=== PATIENT | female | born 1955 | race Caucasian/White ===

== ENCOUNTER → 2024-02-05 12:36 | Outpatient (REF) | payer MEDICARE, OTHER, SELFPAY | LOC: HWWDC 12:36 | PROVIDERS: ATTENDING PHYSICIAN Physician Assistant Medical | DX: Z12.31 Encounter for screening mammogram for malignant neoplasm of breast (principal) | CPT/HCPCS: 77063; 77067 ==

== ENCOUNTER 2024-05-28 04:47 | Emergency (ER) | payer MEDICARE, OTHER, SELFPAY ==
[2024-05-28 04:50] VITALS: BP 148/72
[2024-05-28 05:06] VITALS: BMI 25.3
[2024-05-28] MEDS: ZOFRAN 4 MG IV (05:29)
[2024-05-28] MEDS: TORADOL 15 MG IV (05:30)
[2024-05-28 05:34] LABS: Hemoglobin 13.5 g/dL (12.0-16.0); Mean Corp Hgb Conc. 32.9 g/dL (33.0-37.0); Mean Corpuscular Hgb 30.3 pg (27.0-31.0); Mean Corpuscular Volume 91.9 fL (81.0-99.0); Platelet Count 444 10^3/uL (130-400); Red Blood Cell Count 4.46 10^6/uL (4.20-5.40); Red Cell Dist. Width 12.1 % (11.5-14.5)
[2024-05-28 05:37] LABS: Urine Albumin Trace (Neg - Trace); Urine Bilirubin Negative (Negative); Urine Character Clear (Clear); Urine Color Yellow; Urine Glucose Negative (Negative); Urine Ketone Negative (Negative); Urine Leukocyte Trace (Negative); Urine Nitrite Negative (Negative); Urine Occult Blood Negative (Negative); Urine Specific Gravity 1.025 (<1.030); Urine Urobilinogen Negative (Neg - 1+)
[2024-05-28 05:38] LABS: ALT (SGPT) 24 U/L (0-35); AST (SGOT) 26 U/L (14-36); Albumin 4.4 g/dl (3.5-5.0); Alkaline Phosphatase 56 U/L (38-126); Blood Urea Nitrogen 24 mg/dl (7-17); Calcium 9.7 mg/dl (8.4-10.2); Carbon Dioxide 29 mmol/L (22-30); Chloride 98 mmol/L (98-107); Estimated Creatinine Clearance 47 ml/min; Glucose 155 mg/dl (70-99); Potassium 4.2 mmol/L (3.5-5.1); Sodium 138 mmol/L (135-145); Total Bilirubin 0.8 mg/dl (0.2-1.3); Total Protein 7.4 g/dl (6.3-8.2); eGFR > 60.00
--- NOTE | 2024-05-28 06:02 | ED.GENMED ---
History of Present Illness
General
Chief Complaint: Flank Pain
Time Seen by Provider: 05/28/24 06:02
History of Present Illness
History of Present Illness:
TIME OF INITIAL ENCOUNTER: 6:05 AM
HPI: The patient presents with 1 hour of left flank pain that started abruptly. This feels very similar to prior stone. She has not had any fevers. She had severe pain upon arrival and was given Toradol just prior to my evaluation. Upon my
evaluation just after 6 AM, she feels markedly improved. She has no abdominal pain. No UTI symptoms.
EXAM:
GENERAL: Well appearing in no distress
HEENT: Moist oral mucosa
CARDIOVASCULAR: No murmurs, normal heart rate, regular rhythm, No chest wall tenderness
PULMONARY: No respiratory distress, breath sounds are clear and equal
ABDOMEN: Soft with no peritoneal signs, no tenderness, no CVA tenderness
NEUROLOGIC: Excellent strength all extremities, no coordination deficits
PSYCHIATRIC: Appropriate mental status, normal insight and judgement
EXTREMITIES: Nontender, no edema, moves all extremities equally
SKIN: No rash, no lesions
NUMBER AND COMPLEXITY OF PROBLEMS ADDRESSED AT THE ENCOUNTER
� Chronic conditions affecting care: Has had kidney stones, appendectomy
� Acute Exacerbation and/or Progression of Chronic Illness: This is an acute problem
� Differential Diagnosis includes: Ureteral stone, UTI, pyelonephritis
AMOUNT AND/OR COMPLEXITY OF DATA TO BE REVIEWED AND ANALYZED
� I performed an independent evaluation of and my interpretation is:
EKG:
CT: CT shows a 2 mm stone at the left UVJ with hydronephrosis
X-rays:
Laboratory Studies: CBC unremarkable, chemistries unremarkable however BUN and glucose are somewhat elevated, LFTs normal, urinalysis shows trace leukocyte esterase
Other:
� Review of other/old records: I reviewed records, the patient had a 1.5 mm left UVJ stone in 2017
� Clinical information was obtained by an independent historian: I spoke to family member at bedside
� Prescriptions/Medications Considered but not given: Considered antibiotics however see below
� Further testing considered but not performed:
RISK OF COMPLICATIONS AND/OR MORBIDITY OR MORTALITY OF PATIENT MANAGEMENT
� Social determinants of health affecting care: Lives at home
� Discussion with other providers:
� Escalation of care including admission/observation vs risk of discharge considered: The patient is found to have a 1.5 mm left UVJ stone. After Toradol was given, she feels markedly improved. I have given her contact
information for local urologist to follow-up with.
ANY OTHER UPDATES:
On reassessment prior to discharge, the patient continues to feel very well and is comfortable and overall appearance. Only 3-5 white cells on urinalysis�very low suspicion for UTI/infected stone.
Past History
Past History
ED Past Medical History: Hypercholesterolemia, Psychiatric and Other
ED Past Surgical History: Appendectomy
Social History
Tobacco: Non-smoker
Alcohol: Occasional
Living: with family
Employment: Employed
Family History
Family History: CAD
Phy Exam
Physical Exam
Physical Exam:
See HPI
Course
Orders/Labs/Results
Orders:
Orders
05/28/24 05:08
Complete Blood Count/With Diff Urgent
Comprehensive Metabolic Panel Urgent
05/28/24 05:25
Urinalysis Reflex To Culture Urgent
Date Specimen was Collected: 05/28/24
Time Specimen was Collected: 05:07
Urine Microscopic Reflex Cult Urgent
Urine Culture Urgent
JENS Source: U
Specimen Description:
Date Specimen was Collected: 05/28/24
Time Specimen was Collected: 05:07
05/28/24 05:27
Ketorolac [Toradol] 15 mg .ROUTE .STK-MED ONE
Ondansetron Injectable [Zofran] 4 mg .ROUTE .STK-MED ONE
05/28/24 05:28
Ketorolac [Toradol] 15 mg IV NOW STA
05/28/24 05:29
Ondansetron Injectable [Zofran] 4 mg IV NOW STA
05/28/24 05:32
CT Abd/pel Without Iv Or Oral Urgent
Comment:
Reason For Exam: left flank pain, hx kidney stones
05/28/24 06:10
Tamsulosin [Flomax] 0.4 mg PO NOW STA
Abnormal Lab Results
05/28/24 05/28/24
05:08 05:25
MCHC 32.9 L g/dL
(33.0-37.0)
Plt Count 444 H 10^3/uL
(130-400)
BUN 24 H mg/dl
(7-17)
Glucose 155 H mg/dl
(70-99)
Leukocyte Esterase Rfl Trace A
(Negative)
Urine Bacteria (Reflex) Many A
(Negative)
05/28/24 05:08
05/28/24 05:08
Vital Signs
Initial and Last Documented VS:
Initial Vital Signs
Temp Pulse Resp BP Pulse Ox
36.5 C 64 24 148/72 98
05/28/24 04:50 05/28/24 04:50 05/28/24 04:50 05/28/24 04:50 05/28/24 04:50
Last Documented Vital Signs
Temp Pulse Resp BP Pulse Ox
36.5 C 64 24 148/72 98
05/28/24 04:50 05/28/24 04:50 05/28/24 04:50 05/28/24 04:50 05/28/24 04:50
*Critical Care Note
Total Time (30-74mins, 75-104mins- exclusive of procedures): Not Applicable
ED Attending Note
-
Portions of this chart may have been created with voice recognition software.� Occasional wrong word or��sound alike� substitutions may have occurred due to the inherent limitations of voice recognition software.
Discharge Plan
Departure
Patient Disposition: Home (Routine Discharge)
Date of Disposition: 05/28/24
Time of Disposition: 06:25
Patient with high blood pressure during this ER visit?: Yes
Discharge Problem:
Left ureteral stone
Instructions: Kidney Stones (DC), Flank Pain (DC), BLOOD PRESSURE, Narcotic Pain Medication
Prescriptions:
New
tamsulosin [Flomax] 0.4 mg capsule
0.4 mg PO DAILY 14 Days Qty: 14 0RF
hydrocodone-acetaminophen 5-325 mg tablet
1 - 2 tab PO Q6H PRN (Reason: Pain) Qty: 14 0RF
ondansetron 4 mg tablet,disintegrating
4 mg PO Q6H PRN (Reason: nausea and vomiting) Qty: 14 0RF
No Action
atorvastatin 20 MG tablet
20 mg PO QPM
aspirin 81 MG tablet,chewable
81 mg PO DAILY
hydrocodone-acetaminophen 1 TABLET tablet
1 tab PO Q4HPRN PRN (Reason: pain) Qty: 10 0RF
tamsulosin [Flomax] 0.4 MG capsule
0.4 mg PO DAILY Qty: 5 0RF
Referrals:
Adrienne Grigsby PA-C [Family Provider] -
Hakeem Conde MD [Active] - Follow up in 2-3 days
Activity Restrictions/Additional Instructions:
I recommend that you strain your urine. The CAT scan shows a 1.5 mm stone on the left side. I have given the contact information for local urologist. If you take the narcotic, I recommend that you take something like MiraLAX to help prevent
constipation. I recommend 3-4 [id number] ibuprofen (Motrin) every 8 hours with food for a few days. Return here if worse.
Interventions
Interventions:
*Risk Screen - Suicide Last Done: 05/28/24 04:50
*General Assessment Last Done: 05/28/24 05:04
*Neglect/Abuse Screening Last Done: 05/28/24 04:50
ED- Fall Risk Assessment Last Done: 05/28/24 06:51
*ED COVID-19 Vaccine History Last Done: 05/28/24 05:04
*Nursing Disposition Last Done: 05/28/24 06:49
SL-Wzqcvj-Ttzvpvfbzy Assessment Last Done: 05/28/24 05:04
ED-Female Genitourinary Assessment Last Done: 05/28/24 05:04
Discharge Date and Time
Discharge Date/Time: 05/28/24 06:49
Print Language: OCCITAN
[2024-05-28 06:28] LABS: Urine Red Blood Cell 0-2 /HPF (0-2)
[2024-05-28 06:29] LABS: Urine Bacteria Many (Negative)
[2024-05-28 08:32] LABS: % Immature Granulocytes 0.1 % (0-0.5); % Lymphocytes 53.1 % (20.5-51.1); % Monocytes 5.5 % (1.7-9.3); % Neutrophils 39.3 % (42.2-75.2); Absolute Basophils 0.1 10^3/uL (0-0.2); Absolute Eosinophils 0.1 10^3/uL (0-0.7); Absolute Lymphocytes 4.8 10^3/uL (1.2-3.4); Absolute Monocytes 0.5 10^3/uL (0.1-0.6); Absolute Neutrophils 3.5 10^3/uL (1.4-6.5); Nucleated Red Blood Cells % 0 %
== END 2024-05-28 06:49 | disposition home or self-care (01) ==
LOC: EMR 04:47
PROVIDERS: Student in an Organized Health Care Education/Training Program; EMERGENCY PHYSICIAN Emergency Medicine; FAMILY PHYSICIAN Physician Assistant Medical
DX: R10.9 Unspecified abdominal pain (principal); E78.00 Pure hypercholesterolemia, unspecified; Z82.49 Family history of ischemic heart disease and other diseases of the circulatory system; Z87.442 Personal history of urinary calculi; Z90.49 Acquired absence of other specified parts of digestive tract
CPT/HCPCS: 99284; 96374; 96375; 74176; 80053; 81003; 81015; 85025; 87086

== ENCOUNTER → 2024-06-12 14:12 | Outpatient (REF) | payer MEDICARE, OTHER, SELFPAY | LOC: RAD 14:12 | PROVIDERS: ATTENDING PHYSICIAN Specialist; FAMILY PHYSICIAN Physician Assistant Medical | DX: N20.1 Calculus of ureter (principal); D41.01 Neoplasm of uncertain behavior of right kidney | CPT/HCPCS: 74178; Q9967 ==

== ENCOUNTER → 2024-07-11 10:49 | Outpatient (REF) | payer MEDICARE, OTHER, SELFPAY ==
[2024-07-11 11:41] LABS: INR 0.97; PT 13.2 Sec (11.4-14.6)
[2024-07-11 11:42] LABS: APTT 26.3 Sec (23.4-35.0)
== END ==
LOC: SDSPAT 10:49
PROVIDERS: ATTENDING PHYSICIAN Urology; FAMILY PHYSICIAN Physician Assistant Medical
DX: N28.89 Other specified disorders of kidney and ureter (principal)
CPT/HCPCS: 36415; 71046; 85610; 85730; 86850; 86900; 86901; 86920; 93005

== ENCOUNTER 2024-07-25 13:45 | Inpatient (IN) | payer MEDICARE, OTHER, SELFPAY ==
[2024-07-11 11:51] VITALS: BMI 26.8
[2024-07-24] VITALS (13 sets, daily range): BP systolic 112–162; BP diastolic 65–74; BMI 26.8
[2024-07-24] MEDS: NORMOSOL-R/PLASMALYTE-A 1000 IV (06:46)
--- NOTE | 2024-07-24 11:05 | W.IMMPOSTOP ---
Surgical Immed Post Op Note
-
Primary Surgeon: Amaya
Assisting Surgeon: -
Pre-op Diagnosis: R renal mass
Post-op Diagnosis: same
Procedure Performed: Robotic R nephrectomy
Anesthesia Type: general
Specimen / Cultures: R kidney
Estimated Blood Loss: 50cc
Complications: none
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
[2024-07-24 12:33] LABS: Hematocrit 39.3 % (37.0-47.0); Hemoglobin 12.9 g/dL (12.0-16.0); Mean Corp Hgb Conc. 32.8 g/dL (33.0-37.0); Mean Corpuscular Hgb 30.5 pg (27.0-31.0); Mean Corpuscular Volume 92.9 fL (81.0-99.0); Mean Platelet Volume 9.1 fL (7.4-10.4); Platelet Count 391 10^3/uL (130-400); Red Blood Cell Count 4.23 10^6/uL (4.20-5.40); Red Cell Dist. Width 12.5 % (11.5-14.5); White Blood Cell Count 16.7 10^3/uL (4.8-10.8)
[2024-07-24 12:41] LABS: Blood Urea Nitrogen 19 mg/dl (7-17); Calcium 8.8 mg/dl (8.4-10.2); Carbon Dioxide 25 mmol/L (22-30); Chloride 101 mmol/L (98-107); Estimated Creatinine Clearance 59 ml/min; Glucose 169 mg/dl (70-99); Sodium 137 mmol/L (135-145); eGFR > 60.00
[2024-07-24] MEDS: ZOFRAN 4 MG IV (13:28)
[2024-07-24] MEDS: DILAUDID 0.5 MG IV ×2 (13:28→18:28)
[2024-07-24] MEDS: NSS 1000 IV ×2 (13:28→21:28)
--- NOTE | 2024-07-24 13:37 | PTCARENOTE ---
pt admitted from PACU s/p total R nephrectomy. pt ia AAO*3, drowsy and sleepy. pt c/o 8/10 Nausea and pain on the surgical site. pt oriented to the room. PRN eds given as ordered. call nevarez within the reach. plan of care ongoing.
--- NOTE | 2024-07-24 16:04 | PTCARENOTE ---
Assumed care of patient at 15:00. No noted changes in assessment.
[2024-07-24] MEDS: COMPAZINE 10 MG IV (17:17)
[2024-07-24] MEDS: SENOKOT PO (19:40)
[2024-07-24] MEDS: TYLENOL 650 MG PO (21:33)
[2024-07-25 03:23] VITALS: BP 147/53
[2024-07-25] MEDS: TYLENOL #3 1 TABLET PO (05:30)
[2024-07-25 06:44] LABS: Hematocrit 34.1 % (37.0-47.0); Hemoglobin 11.4 g/dL (12.0-16.0); Mean Corp Hgb Conc. 33.4 g/dL (33.0-37.0); Mean Corpuscular Hgb 31.1 pg (27.0-31.0); Mean Corpuscular Volume 93.2 fL (81.0-99.0); Mean Platelet Volume 9.4 fL (7.4-10.4); Platelet Count 348 10^3/uL (130-400); Red Blood Cell Count 3.66 10^6/uL (4.20-5.40); Red Cell Dist. Width 12.6 % (11.5-14.5); White Blood Cell Count 11.2 10^3/uL (4.8-10.8)
[2024-07-25 07:07] LABS: Blood Urea Nitrogen 17 mg/dl (7-17); Calcium 9.1 mg/dl (8.4-10.2); Carbon Dioxide 24 mmol/L (22-30); Chloride 108 mmol/L (98-107); Estimated Creatinine Clearance 47 ml/min; Glucose 97 mg/dl (70-99); Potassium 4.6 mmol/L (3.5-5.1); Sodium 137 mmol/L (135-145); eGFR > 60.00
[2024-07-25 07:25] VITALS: BP 117/52
--- NOTE | 2024-07-25 08:39 | W.PN.URO.CBU ---
Addendum entered and electronically signed by Hakeem Conde MD 09/22/24 11:06:
Patient was intended to be admitted as inpatient
Original Note:
Today's Communication / Plan
-
discharge
Assessment / Plan
-
69F POD 1 s/p Robotic R nephrectomy
Beauchamp out
ambulate
IS
reg diet
PO pain control
Discharge
Diagnosis
-
Date of Service: July 25, 2024
-
Patient Diagnosis:
R renal mass
Post Op Day: s/p robotic R nephrectomy
Subjective
-
No ambulation yet
Nausea resolved
tolerating diet
pain controlled
Objective
-
Vital Signs
Temp Pulse Resp BP Pulse Ox
98.5 F 72 18 147/53 96
07/25/24 03:23 07/25/24 03:23 07/25/24 03:23 07/25/24 03:23 07/25/24 03:23
Intake and Output
07/24/24 07/25/24 07/26/24
06:59 06:59 06:59
Intake Total 480 / 480
Output Total 1824
Balance -1345 / -1345
Intake:
Oral fluids 480 / 480
Output:
Urine, Beauchamp 1824
Laboratory Results
07/25/24 06:13
07/25/24 06:13
Physical Exam
-
General - well developed, well nourished, no acute distress
Chest - clear bilaterally
Abdomen - soft, non-tender
Skin - warm & dry with no rash
Neuro - AOx3, no motor deficits
Extremities - no clubbing, no cyanosis, no edema
Incision - clean, dry
Dressing - clean, dry, intact
[2024-07-25] MEDS: TYLENOL #3 2 TABLET PO ×2 (09:02→13:12)
[2024-07-25] MEDS: SENOKOT 17.2 MG PO (09:03)
--- NOTE | 2024-07-25 11:21 | CM ---
Patient seen bedside.
Patient denies home care needs.
Patient has transportation.
Plan: home no needs.
[2024-07-25 11:33] VITALS: BP 155/60
== END 2024-07-25 14:00 | disposition home or self-care (01) | DRG 658 ==
LOC: PACUI 13:45
PROVIDERS: ADMITTING PHYSICIAN Urology
PROC: 8E0W4CZ Robotic Assisted Procedure of Trunk Region, Percutaneous Endoscopic Approach (ICD-10-PCS; 2024-07-24)
PROC: 0TT04ZZ Resection of Right Kidney, Percutaneous Endoscopic Approach (ICD-10-PCS; 2024-07-24)
DX: C64.1 Malignant neoplasm of right kidney, except renal pelvis (principal); Z87.442 Personal history of urinary calculi
CPT/HCPCS: 50545; 88307; 80048; 85027; 86900; 86901

== ENCOUNTER → 2024-10-14 14:53 | Outpatient (REF) | payer MEDICARE, OTHER, SELFPAY | LOC: HWRCS 14:53 | PROVIDERS: ATTENDING PHYSICIAN Nuclear Medicine Nuclear Cardiology; FAMILY PHYSICIAN Physician Assistant Medical | DX: I10 Essential (primary) hypertension (principal); Z85.528 Personal history of other malignant neoplasm of kidney; R07.89 Other chest pain; R06.09 Other forms of dyspnea; R00.2 Palpitations | CPT/HCPCS: 93306 ==

== ENCOUNTER → 2025-04-07 09:58 | Outpatient (REF) | payer MEDICARE, OTHER, SELFPAY | LOC: HWWDC 09:58 | PROVIDERS: ATTENDING PHYSICIAN Physician Assistant Medical | DX: Z12.31 Encounter for screening mammogram for malignant neoplasm of breast (principal) | CPT/HCPCS: 77063; 77067 ==